=== PATIENT | female | born 1950 | race African-American/Black ===

== ENCOUNTER 2019-05-10 09:31 | Inpatient (IN) ==
[2019-05-10 10:45] LABS: INR 1.02; PROTIME 13.5 Seconds (11.0-16.0)
[2019-05-10 10:58] LABS: BASO# 0.01 X1000 (0.0-0.2); HEMATOCRIT 40.4 % (37.0-47.0); HEMOGLOBIN 13.2 g/dL (12.0-16.0); LYMPH# 4.39 X1000 (1.2-3.4); LYMPH% 21.8 % (20.5-51.1); MCH 29.4 PG (27-31); MCHC 32.7 g/dL (33-37); MONO# 1.81 X1000 (0.11-0.59); MPV 12.7 FL (7.4-10.4); NEUT# 13.77 X1000 (1.4-6.5); NEUT% 68.2 % (42.2-75.2); PLT 199 X1000 (130-400); RBC 4.49 XMIL (4.2-5.4); RDW 13.8 % (11.5-14.5); WBC 20.18 X1000 (4.8-10.8)
[2019-05-10 10:59] LABS: AGAP 13; ALKALINE PHOSPHATASE 94 U/L (32-104); BUN 23 mg/dL (8-22); CALCIUM 9.9 mg/dL (8.8-10.2); CHLORIDE 94 mmol/L (98-107); COSMO 272; ESTIMATED GFR > 60; GLUCOSE 105 mg/dL (70-104); GOT 33 U/L (10-30); GPT 39 U/L (10-36); POTASSIUM 3.3 mmol/L (3.5-5.1); SODIUM 134 mmol/L (136-145); TCO2 27 mmol/L (25-35); TOTAL BILIRUBIN 0.56 mg/dL (0.20-1.00)
[2019-05-10] MEDS ORDERED: LEVAQUIN 750 MG/D5W 750 MG/150 ML IVPB IV ONE (11:07)
[2019-05-10 12:24] LABS: URINE SOURCE CLEAN CATCH
[2019-05-10 12:29] LABS: BILIRUBIN URINE NEGATIVE (NEGATIVE); BLOOD URINE NEGATIVE (NEGATIVE); COLOR YELLOW; GLUCOSE URINE NEGATIVE (NEGATIVE); KETONE URINE NEGATIVE (NEGATIVE); LEUKOCYTES URINE TRACE (NEGATIVE); NITRITE URINE NEGATIVE (NEGATIVE); PROTEIN URINE TRACE mg/dL (NEGATIVE); SP GRAVITY URINE 1.027; TURBIDITY URINE CLEAR (CLEAR); UR EPITHELIAL CELLS <10 /HPF (<10); URINE BACTERIA NEGATIVE /HPF; URINE RBC <10 /HPF (<10); URINE WBC <10 /HPF (<10); UROBILINOGEN URINE NORMAL (NORMAL)
--- NOTE | 2019-05-10 14:30 | Diag Imaging Result Doc PS360 ---
EXAM: CT ABD/PELVIS W/IV CONT ONLY HISTORY: gi bleeding TECHNIQUE: CT abdomen and pelvis with intravenous contrast COMPARISON: 05/10/2017 FINDINGS: There is fatty infiltration of the liver. No calcified gallstones or adjacent inflammation. Normal spleen and adrenal glands. Normal pancreas. There are left renal cysts. No hydronephrosis. Normal aorta. No bowel obstruction. No bowel wall thickening on the current exam. Normal appendix. No abscess. No ascites. The urinary bladder is low lying. The uterus has been removed. No pelvic mass. IMPRESSION: 1.Fatty infiltration of the liver 2.Scattered left renal cysts measuring up to 5.8 cm 3.Hysterectomy with a low lying urinary bladder This exam was performed using automated exposure control, adjustment of mA or kV according to patient size, and/or use of iterative reconstruction technique. Electronically signed by Chapo Eng 05/10/2019 2:27 PM
--- NOTE | 2019-05-10 14:48 | PROVIDER DOCUMENTATION ---
This chart was entered by Augie Miner Scribe, acting as scribe for Raz Hernandez MD. HPI-Abdominal Pain/GI Problem - General Chief Complaint: GI Bleed Stated Complaint: general Time Seen by Provider: 05/10/19 10:03 Source: patient Allergies/Adverse Reactions: Patient Allergies Allergy/AdvReac Type Severity Reaction Status Date / Time allopurinol Allergy Mild RASH Verified 05/10/19 10:18 furosemide [From Lasix] Allergy Mild ITCHING Verified 05/10/19 10:18 Home Medications: Home Medication List Medication Instructions Recorded Confirmed Last Taken Type Timolol 0.5% Oph Solution 1 drop OPH DAILY 05/13/17 05/10/19 05/09/17 08:00 H istory [Timoptic 0.5% Oph Solution] ATORVAstatin [Lipitor] 40 mg PO DAILY 05/10/19 05/10/19 Unknown History Amoxicillin/Potassium Clav 1 ea PO BID 05/10/19 05/10/19 Unknown History [Augmentin 875-125 Tablet] Hydrochlorothiazide 12.5 mg PO DAILY 05/10/19 05/10/19 Unknown History Levothyroxine [Synthroid] 125 microgm PO DAILY 05/10/19 05/10/19 Unknown History Montelukast [Singulair] 10 mg PO DAILY 05/10/19 05/10/19 Unknown History - History of Present Illness-ABD Nature of Presenting Problems: 69 yof presents to the ed with c/o loose dark stool. pt states onset yesterday with loose dark diarrhea." pt states " thought i was having GI bleed." pt brought in stool sample. Quality of Pain: reports: none Severity in ED: reports: mild Onset/Duration: reports: 24 hours ago Timing: reports: still present Activities at Onset: reports: none Exposure to sick contacts?: No Modifying Factors: improves with: nothing Associated Symptoms: reports: diarrhea. denies: back/neck pain, chest pain, constipation, diaphoresis, fever/chills, nausea, rash, shortness of breath, vomiting Last BM: 24 hours ago Dark Stools Present?: reports: other (pt states " dark stool") Rectal Bleeding: reports: none # of Diarrhea Episodes: 8 Rectal Pain: reports: none Emesis Description: reports: none Bruising or Bleeding Gums?: No Similar Symptoms Previously?: No Recently seen or treated by another doctor?: No Review of Systems - Adult - REVIEW OF SYSTEMS - ADULT Constitutional: denies: chills, fever Eyes: reports: no symptoms reported Ears, Nose, Mouth & Throat: reports: no symptoms reported Cardiovascular: reports: no symptoms reported Respiratory: denies: shortness of breath, wheezing Gastrointestinal: reports: see HPI, diarrhea. denies: abdominal pain, constipation, nausea, vomiting Genitourinary: denies: dysuria, discharge, frequency, flank pain, urinary retention, urgency Musculoskeletal: reports: no symptoms reported Integumentary: reports: no symptoms reported Neurological: reports: no symptoms reported Psychiatric: reports: no symptoms reported Endocrine: reports: no symptoms reported Hematologic/Lymphatic: reports: no symptoms reported Allergic/Immunologic: reports: no symptoms reported All Other Systems: Reviewed and Negative Past History - Adult - PAST MEDICAL HISTORY-ADULT Review of Records: reports: Old Records Reviewed, Nursing Assessment Review, Me dications Reviewed, Social history reviewed & non-contributory. Major Childhood Illnesses: reports: denies history Cardiovascular: reports: denies history Respiratory: reports: denies history Gastrointestinal: reports: denies history Obstetrical/Gynecological: reports: denies history Genitourinary: reports: denies history Musculoskeletal: reports: denies history Neurological: reports: denies history Psychiatric: reports: denies history Endocrine/Immune: reports: Diabetes, thyroid disorder, other (Low potassium) Diabetes Type: Type 2 Other Conditions: reports: denies history - PRIOR SURGERIES/PROCEDURES Surgical/Procedure History: reports: hysterectomy - IMMUNIZATION STATUS Childhood Immunizations: See Nurse Assessment Flu Vaccine: See Nurse Assessment - FAMILY HISTORY Family History: reviewed, not pertinent - SOCIAL HISTORY Smoking: denies Substance Use: denies Physical Exam-General - PHYSICAL EXAM-ADULT Initial Vital Signs Reviewed: Yes - CONSTITUTIONAL General Appearance: appears well, alert, mild distress - EYES Eyes: PERRL/EOMI - HEAD, EARS, NOSE, MOUTH & THROAT HENMT: moist mucous membranes - RESPIRATORY Respiratory: chest non-tender, lungs clear, normal breath sounds - CARDIOVASCULAR Cardiovascular: normal peripheral pulses, regular rate, rhythm - CHEST (BREASTS) Chest/Breast: deferred - GASTROINTESTINAL (ABDOMEN) Abdominal Exam: normal bowel sounds, non tender, soft. negative: guarding - GENITOURINARY Female Genitalia/Pelvic Exam: deferred Rectal Exam: deferred Hemoccult Exam: heme positive stool - MUSCULOSKELETAL Extremity: normal inspection - SKIN Integumentary: normal color, normal turgor, warm/dry - NEUROLOGIC Neurologic: grossly normal, no motor/sensory deficits - PSYCHIATRIC Psych/Mental Status: normal mood/affect, normal thought content, normal thought process, oriented x 3 Progress - PLAN OF CARE/RESULTS Progress/Plan/Lab Results: Vital Signs - 8 hr 05/10/19 09:37 Temperature 97.3 F L Pulse Rate 63 Respiratory Rate 19 Blood Pressure 162/96 O2 Sat by Pulse Oximetry 96 05/10/19 09:38 Stool Occult Blood (EMIGDIO) - Final Stool Laboratory Results - last 24 hr 05/10/19 05/10/19 05/10/19 10:25 10:25 10:25 WBC 20.18 H RBC 4.49 Hgb 13.2 Hct 40.4 MCV 90.0 MCH 29.4 MCHC 32.7 L RDW Std Deviation 13.8 Plt Count 199 MPV 12.7 H Immature Gran % (Auto) 1.0 H Neut % (Auto) 68.2 Lymph % (Auto) 21.8 Peach % (Auto) 9.0 Eos % (Auto) 0.0 Baso % (Auto) 0.0 Immature Gran # (Auto) 0.20 H Neut # (Auto) 13.77 H Lymph # (Auto) 4.39 H Peach # (Auto) 1.81 H Eos # (Auto) 0.00 Baso # (Auto) 0.01 PT 13.5 INR 1.02 PTT (Actin FS) 26.0 Sodium 134 L Potassium 3.3 L Chloride 94 L Carbon Dioxide 27 Anion Gap 13 BUN 23 H Creatinine 1.0 H Estimated GFR/1.73 m2 > 60 BUN/Creatinine Ratio 23 Glucose 105 H Calculated Osmolality 272 Calcium 9.9 Total Bilirubin 0.56 AST 33 H ALT 39 H Alkaline Phosphatase 94 Total Protein 8.0 Albumin 4.0 Globulin 4.0 Albumin/Globulin Ratio 1.0 Orders Category Date Time Status CT ABD/PELVIS W/IV CONT ONLY [CT] Stat Exams 05/10/19 11:07 Ordered BLOOD CULTURE [BLDCUL] Stat Lab 05/10/19 11:07 Uncollected CBC WITH ELECTRONIC DIFF [HEME] Stat Lab 05/10/19 10:25 Completed COMPREHENSIVE METABOLIC PANEL [CHEM] Stat Lab 05/10/19 10:25 Completed OCCULT BLOOD SCREENING [STOOL] Stat Lab 05/10/19 09:38 Completed PROTIME WITH INR [COAG] Stat Lab 05/10/19 10:25 Completed PTT [COAG] Stat Lab 05/10/19 10:25 Completed URINALYSIS W/POSS RFLX CULT [URINALYSIS] Stat Lab 05/10/19 11:07 Uncollected Levofloxacin 750 mg/D5w [Levaquin 750 mg/D5w] Med 05/10/19 11:07 Active 750 mg in 150 ml IV NOW Result Diagrams: 05/10/19 10:25 05/10/19 10:25 - CT/MRI 1 CT Study: Abdomen, Pelvis Impression: See EMR Report (EXAM: CT ABD/PELVIS W/IV CONT ONLY HISTORY: gi bleeding TECHNIQUE: CT abdomen and pelvis with intravenous contrast COMPARISON: 05/10/2017 FINDINGS: There is fatty infiltration of the liver. No calcified gallstones or adjacent inflammation. Normal spleen and adrenal glands. Normal pancreas. There are left renal cysts. No hydronephrosis. Normal aorta. No bowel obstruction. No bowel wall thickening on the current exam. Normal appe ndix. No abscess. No ascites. The urinary bladder is low lying. The uterus has been removed. No pelvic mass. IMPRESSION: 1.Fatty infiltration of the liver 2.Scattered left renal cysts measuring up to 5.8 cm 3.Hysterectomy with a low lying urinary bladder This exam was performed using automated exposure control, adjustment of mA or kV according to patient size, and/or use of iterative reconstruction technique. Electronically signed by Chapo Eng 05/10/2019 2:27 PM 05/10/19 1427 Interpreting Physician: Chapo Eng MD Dictated Date/Time: 05/10/19 1424 cc: Raz Hernandez MD; Ector Coon MD) - CONSULTS/PCP/HOSPITALIST Notification #1 *Consult/PCP/Hospitalist*: Dr. Hernandez consult with Moraima for Hospitalist Time Discussed: 14:41 Consult Disposition: Will see in ED, Admit Departure - Departure Date of Disposition Decision: 05/10/19 Time of Disposition Decision: 14:47 DIAGNOSIS: GI bleeding, Leukocytosis Disposition: ADMITTED INPATIENT 09 Certified Medical Emergency: Emergent Condition: Fair Referrals and Follow-Ups: Ector Coon MD [Primary Care Provider] - - Critical Care Note This patient required my direct & personal management of CC.: Yes Attestation - Physician/ EMILY Attestation Patient care was provided by Advanced Practice Provider:: No The physician spent face to face time with patient:: Yes Advanced Practice Provider documentation review:: Supervising physician onsite and consulted in the evaluation and care of this patient. The physician did have a face to face encounter with the patient. This chart was documented by the indicated scribe, (Augie Miner Scribe) and accurately reflects the services I performed and decisions made by me, Raz Hernandez MD, as attested by the provider's signature.
[2019-05-10] MEDS ORDERED: ZOFRAN IV PRN (14:53)
[2019-05-10] MEDS ORDERED: TYLENOL PO PRN (14:53)
[2019-05-10] MEDS ORDERED: NORCO-7.5 PO PRN (14:53)
[2019-05-10] MEDS ORDERED: APRESOLINE IV PRN (15:13)
[2019-05-10 16:12] LABS: HEMATOCRIT 38.7 % (37.0-47.0); HEMOGLOBIN 12.7 g/dL (12.0-16.0)
[2019-05-10] MEDS: NS 1,000 ML IV SCH (18:00)
[2019-05-10] MEDS: PROTONIX IV SCH (18:00)
[2019-05-10] MEDS: FLAGYL 500 MG/NS 500 MG/100 ML IVPB IV SCH ×2 (18:00→20:01)
[2019-05-10] MEDS: LIPITOR PO SCH (20:01)
[2019-05-10] MEDS: CARAFATE LIQUID PO SCH (20:01)
[2019-05-10 23:08] LABS: HEMATOCRIT 38.8 % (37.0-47.0); HEMOGLOBIN 12.4 g/dL (12.0-16.0)
--- NOTE | 2019-05-11 01:46 | HISTORY AND PHYSICAL ---
PRIMARY CARE PROVIDER: Ector Coon. CHIEF COMPLAINT: Black stools. HISTORY OF PRESENT ILLNESS: Ms Taryn Chen is a 69-year-old female with a medical history of colitis and polypectomy with GI bleed in 2017. At that time was seen by Dr. Zaman and Dr. Monzon. Is now here with complaints of 1 week black, tarry stools. Apparently, she had been having some sinus infection type symptoms. Was seen by a physician at [facility] 1 week ago. Was given Augmentin and a prednisone taper, was also given a steroid shot. She had noticed that day is when she started having the black stools. Black, tarry stools were around 8 bowel movements per day. They started becoming more maroon on and she just continued to have more. There was no nausea. No abdominal pain except for when palpated she did have left lower quadrant pain and there were no other symptoms. Her hemoglobin and hematocrit are stable at 13 and 40. Her white count, however, is elevated at 20,000 but this could be reaction to steroids. The stool sample was positive for blood. Abdominal/pelvic CT performed did not show colitis and really did not show anything acute. We will go ahead and do Protonix, and Levaquin and Flagyl, Carafate, and she is requesting for GI to see her so we will do a GI consult with Dr. Monzon who has actually seen her in the past. She stable for medical transfer to the floor. She is a little bit hypertensive on her diastolics. They are running just over 100. PAST MEDICAL HISTORY: 1. Diabetes mellitus type 2, which she states resolved and she claims she was never diagnosed with it. She was given metformin at one time due to medications that she was on according to her. 2. Hypertension. 3. Hyperlipidemia. 4. Hypothyroidism. 5. Gouty arthritis. 6. History of colon polyps with polypectomy. 7. History of colitis. SURGICAL HISTORY: 1. Partial thyroidectomy due to goiter. 2. Partial hysterectomy. 3. Left foot bunionectomy and hammertoe repair. 4. Polypectomy. 5. In 2017 had EGD and colonoscopy. SOCIAL HISTORY: Denies tobacco, alcohol or illicit drug use. She is . She retired from 10 years ago. FAMILY HISTORY: Mother had diabetes. Father had prostate cancer and diabetes. ALLERGIES: Lasix and allopurinol. HOME MEDICATIONS: 1. She was given Augmentin and prednisone on Sunday. 2. Hydrochlorothiazide 12.5 mg p.o. daily. 3. Atorvastatin 40 mg p.o. daily. 4. Singulair 10 mg p.o. daily. 5. Synthroid 125 mcg p.o. daily. 6. Timolol 1 drop in eyes daily. REVIEW OF SYSTEMS: Fourteen point review of systems are complete and all were negative except for those mentioned in above HPI. PHYSICAL EXAMINATION: VITAL SIGNS: Temperature 97.8 degrees, heart rate 61, respiratory rate 18, blood pressure 159/99, O2 saturation 99%. GENERAL: Ms. Taryn Chen is a 69-year-old female. She is in no acute distress. She is able answer questions appropriately. HEENT: Atraumatic, normocephalic. Pupils equal, round, reactive to light. Extraocular movements intact. Mucous membranes are moist. NECK: Trachea midline. CARDIOVASCULAR: S1, S2. Regular rate and rhythm. No rubs, gallops, murmurs. No lower extremity edema. +2 dorsalis and radial pulses. Negative JVD or carotid bruits. PULMONARY: Clear to auscultate bilateral breath sounds. No accessory muscle use or work of breathing noted. GASTROINTESTINAL: Soft, tender in the left lower quadrant with palpation. Positive bowel sounds x4. EXTREMITIES: Moves all extremities equally. Full range of motion. NEUROLOGIC: A and O x3. Follows commands. Sensory is intact. SKIN: Warm, dry, intact. LABORATORY DATA: White blood cells 20,000, hemoglobin 13, hematocrit 40, platelet count 199,000. INR is 1.02, PTT is 26. Sodium 134, potassium 3.3, BUN 23, creatinine is 1.0, glucose 105, calcium 9.9, bilirubin 0.56, AST 33, ALT 39. CRP 0.71, albumin 4.0, lactate 1.1. Urinalysis, trace protein, trace leukocytes. IMAGING: Abdominal/pelvic CT: 1. Fatty infiltration of the liver. 2. Scattered left renal cysts measuring up to 5.8 cm. 3. Hysterectomy with a low-lying urinary bladder. ASSESSMENT AND PLAN: 1. Possible acute gastritis versus upper GI bleed. Stools are black, tarry to maroon. Denies any GI symptoms though upon examination there was some mild tenderness in the left lower quadrant and the CT was negative. We will go ahead and start her on some Protonix and Carafate. She denies taking any medications that would irritate the stomach lining. She has not been under any stress that she can think of so Dr. Monzon has been consulted. She is actually requesting for him to see her. 2. Leukocytosis. Has been on steroids for a week now. This could be secondary to steroids, but she does also have a history of colitis. We will do stool samples as she has had about 8 bowel movements a day. We will rule out C difficile and we will put her on Levaquin and Flagyl until results are back. We will hold the steroids for now. 3. Sinus infection a week ago. Those symptoms have resolved. She has been on Augmentin and prednisone taper for a week. 4. Hypertension. Hydrochlorothiazide has been started. Her diastolic is over 100. We will add some p.r.n. hydralazine. 5. Hyperlipidemia. Statin resumed. 6. Gouty arthritis. 7. Hypothyroidism. Continue Synthroid. 8. Deep venous thrombosis prophylaxis. SCDs. Dictated by ALEXIS Samson for Domenic Bowser MD Addendum: Patient seen and examined by myself. Agree with ALEXIS note. It reflects my assessment and plan. Patient is being admitted to hospital for GI bleeding. Will consult GI, will start antibiotics for acute colitis. Will monitor patient closely. cc: ALEXIS Samson MD [facility]
[2019-05-11] MEDS: PROTONIX IV SCH ×2 (03:22→16:07)
[2019-05-11] MEDS: FLAGYL 500 MG/NS 500 MG/100 ML IVPB IV SCH ×4 (03:22→21:29)
[2019-05-11] MEDS: CARAFATE LIQUID PO SCH ×4 (03:22→21:29)
[2019-05-11] MEDS: NS 1,000 ML IV SCH ×2 (03:30→10:26)
[2019-05-11 05:29] LABS: BASO# 0.01 X1000 (0.0-0.2); BASO% 0.1 % (0.0-0.8); EOS# 0.06 X1000 (0.0-0.7); EOS% 0.5 % (0.0-10.0); HEMATOCRIT 38.9 % (37.0-47.0); HEMOGLOBIN 12.6 g/dL (12.0-16.0); IMM GRAN# 0.06 X1000 (0.0-0.04); IMM GRAN% 0.5 % (0.0-0.5); LYMPH# 4.51 X1000 (1.2-3.4); LYMPH% 40.1 % (20.5-51.1); MCH 29.7 PG (27-31); MCHC 32.4 g/dL (33-37); MCV 91.7 FL (81-99); MONO# 0.93 X1000 (0.11-0.59); MONO% 8.3 % (1.7-9.3); MPV 12.4 FL (7.4-10.4); NEUT# 5.69 X1000 (1.4-6.5); NEUT% 50.5 % (42.2-75.2); PLT 148 X1000 (130-400); RBC 4.24 XMIL (4.2-5.4); RDW 14.1 % (11.5-14.5); WBC 11.26 X1000 (4.8-10.8)
[2019-05-11 05:51] LABS: AGAP 14; ALB/GLOB RATIO 0.9; ALBUMIN 3.3 g/dL (3.5-5.0); ALKALINE PHOSPHATASE 84 U/L (32-104); BUN 19 mg/dL (8-22); CHLORIDE 98 mmol/L (98-107); COSMO 280; ESTIMATED GFR > 60; GLUCOSE 103 mg/dL (70-104); GOT 52 U/L (10-30); GPT 47 U/L (10-36); MAGNESIUM 2.1 mg/dL (1.5-2.7); POTASSIUM 3.2 mmol/L (3.5-5.1); SODIUM 139 mmol/L (136-145); TCO2 27 mmol/L (25-35); TOTAL BILIRUBIN 0.55 mg/dL (0.20-1.00); TOTAL PROTEIN 6.8 g/dL (6.3-8.3)
[2019-05-11] MEDS: SYNTHROID PO SCH (06:28)
[2019-05-11] MEDS: HYDROCHLOROTHIAZIDE PO SCH (08:11)
[2019-05-11] MEDS: SINGULAIR PO SCH (08:11)
[2019-05-11] MEDS: TIMOPTIC 0.5% OPH SOLUTION OPH SCH (08:17)
[2019-05-11] MEDS ORDERED: KLOR-CON PO ONE (11:23)
[2019-05-11 11:54] LABS: HEMATOCRIT 38.8 % (37.0-47.0); HEMOGLOBIN 12.5 g/dL (12.0-16.0)
--- NOTE | 2019-05-11 13:06 | PROGRESS NOTE ---
DATE: 05/11/2019 SUBJECTIVE: The patient reports feeling fine. No abdominal pain. No fever or chills. OBJECTIVE: Vital Signs: Temperature 97.9 degrees, heart rate 61, respiratory 16, blood pressure 149/89, O2 saturation 100% on room air. General: This is a 69-year-old female lying in bed, in no acute distress. Cardiovascular: S1, S2 heard. No murmurs, gallops, or rubs. Regular rate and rhythm. Respiratory: Clear bilaterally to auscultation. No work of breathing or using accessory muscles. Abdomen: Soft, nontender to palpation. Bowel sounds present. No organomegaly. Extremities: No clubbing, cyanosis, or edema. Peripheral pulses present in both legs. Neurological: Patient is alert oriented x3. Moves 4 extremities. LABORATORY DATA: White cell count 12.5 with normal white cell count 11.26. Potassium 3.2. Creatinine 1.0. ASSESSMENT AND PLAN: 1. Possible upper gastrointestinal bleeding. No more episodes of black tarry stools. At this point, the patient is feeling better. The leukocytosis that this patient had is most likely related to colitis, but with antibiotic that she is on, white cell count is almost back to normal. So at this point, we will continue with current management. We will see what GI has to say. We will continue to monitor. 2. Hypertension. Blood pressure is under control. We will continue with the same management. 3. Hyperlipidemia. We will continue with statins. 4. Gouty arthritis. Not in any pain at this point, we will continue to monitor. 5. Hypothyroidism. Will continue home doses of Synthroid. 6. Disposition. Following lead from GI. cc: Domenic Bowser MD
[2019-05-11] MEDS: LEVAQUIN 750 MG/D5W 750 MG/150 ML IVPB IV SCH (13:43)
[2019-05-11] MEDS ORDERED: GOLYTELY PO ONE ×2 (14:00)
[2019-05-11] MEDS: SODIUM CHLORIDE 0.9% INJ SCH (16:07)
[2019-05-11 16:44] LABS: HEMATOCRIT 38.5 % (37.0-47.0); HEMOGLOBIN 12.4 g/dL (12.0-16.0)
--- NOTE | 2019-05-11 19:23 | GASTROENTEROLOGY CONSULTATION ---
DATE: 05/10/2019 REASON FOR CONSULT: GI bleed. HISTORY OF PRESENT ILLNESS: Ms Taryn Chen is a 69-year-old female with a history of colitis, hypertension, hyperlipidemia, hypothyroidism, gout, arthritis, diabetes type 2 who presented to the hospital with complaints of noticing dark tarry stools which has been going on for the last 1 week onwards. The patient mentioned that she had some sinus infection and she had gone to [facility] a week ago where they had given her Augmentin and prednisone. After taking the Augmentin, the patient mentioned that she started seeing her stools were black and tarry and she was having diarrhea almost 7 to 8 bowel movements daily. The patient has denied any nausea, vomiting, or abdominal pain, but she does mention that her abdomen feels like it is a bloated. Patient was in the hospital in May 2017 with similar problems. She had rectal bleeding. A colonoscopy was done by Dr. Monzon on 05/11/2017 and the findings were diffuse colitis, more intense in the right colon, likely infectious. The patient's abdomen and pelvis CT has shown she has fatty infiltration of the liver, scattered left renal cyst measuring up to 5.8 cm, hysterectomy with the low-lying urinary bladder. Her C difficile toxin was negative. Clostridium difficile antigen was negative. The patient's urine culture has shown no growth. Her occult blood was positive and stool cultures for WBC, few were seen. PAST MEDICAL HISTORY: Diabetes type 2, hypertension, hyperlipidemia, hypothyroidism, gout, arthritis, history of colon polyp, history of colitis. PAST SURGICAL HISTORY: Partial thyroidectomy, partial hysterectomy, left foot bunionectomy and hammertoe repair, polypectomy. SOCIAL HISTORY: The patient is a . She has 3 kids. She has denied any alcohol, tobacco, or illicit drug use. ALLERGIES: The patient is allergic to Lasix and allopurinol. FAMILY HISTORY: Mother had diabetes. Father had prostate cancer and diabetes and sister had colon cancer. HOME MEDICATIONS ARE: Timolol 0.5% ophthalmic solution 1 drop daily, hydrochlorothiazide 12.5 mg daily, levothyroxine 125 mcg daily, Singulair 10 mg daily, Augmentin 875/125 tablets 1 tablet p.o. twice a day, atorvastatin 40 mg daily. REVIEW OF SYSTEMS: As per HPI. Otherwise, 12 point review of system is negative. PHYSICAL EXAMINATION: Vital Signs: Temperature 97.3, pulse 63, respirations 19, blood pressure 162/96, oxygen saturation 96% on room air. General: She is alert, oriented x3, in no acute distress. Answering questions appropriately. HEENT: Pale conjunctivae. No icterus. PERRL. Neck: Supple. Lungs: Clear to auscultation in the anterior tirado. Cardiovascular: Regular rate and rhythm. Abdomen: Mildly distended, mildly tender. Active bowel sounds heard in all 4 quadrants. Extremities: No clubbing, no cyanosis, no edema. Pedal pulses 2+ present bilaterally. Neurological: Alert and oriented x3. Nonfocal. Cranial nerves 2-12 grossly intact. LABORATORY DATA: WBC is 20.18, RBC 4.49, hemoglobin 12.4, hematocrit 38.8, platelet count 199,000. Sodium 134, potassium 3.3, chloride 94, carbon dioxide is 27, anion gap 13, BUN 23, creatinine 1.0, glucose 105, calcium 9.9, total bilirubin 0.56, AST 33, ALT 39, alkaline phos 94, albumin 4.0. Urinalysis showed trace of protein and trace of leukocyte. IMAGING: Ultrasound of the abdomen showed fatty infiltrates of the liver. Abdomen and pelvis CT had shown fatty infiltrates of the liver, scattered left renal cyst measuring up to 5.8 cm and hysterectomy and low-lying urinary bladder. IMPRESSION AND PLAN: GI bleed Diarrhea History of colitis Leukocytosis Hypertension Hypothyroidism Gout Arthritis PLAN: Ms. Chen is a 69 year old female with the history of colitis, GI is consulted for her GI bleed. The patient is receiving Flagyl 500 mg for her diarrhea. She is on IV fluids normal saline at 75 mL. The patient is on a gastrointestinal prophylaxis, Protonix 40 mg IV twice a day. She is also receiving Carafate liquid 1 g. The patient is also on antibiotic Levaquin. The plan is to do a colonoscopy on Sunday. We will continue to monitor the patient and follow the plan of care per primary care physician. This plan was discussed with Dr. Monzon. Please call us for any further questions or concerns. Dictated by ALEXIS Nash for Marsha Monzon MD cc: Marsha Monzon MD [facility]
[2019-05-11] MEDS: LIPITOR PO SCH (21:29)
--- NOTE | 2019-05-11 21:34 | GASTROENTEROLOGY PROGRESS NOTE ---
DATE: 05/11/2019 SUBJECTIVE: Ms. Chen is a 69-year-old female. She was sitting in bed. She has denied any abdominal pain, nausea, vomiting, but she was a little nervous and wanted to know what exactly is going on as far as her stomach is concerned. OBJECTIVE: Vital Signs: Temperature 97.7 degrees, pulse is 54, respirations 16, blood pressure 130/84, oxygen saturation 100% on room air. The patient's weight is 192 pounds. BMI is 37.0 kg/m2. General: She is alert, oriented x3, and in no acute distress. HEENT: Pale conjunctivae. No icterus. PERRL. Neck: Supple. Lungs: Clear to auscultation in anterior tirado. Cardiovascular: Patient is bradycardic. Abdomen: Soft, mildly distended. Active bowel sounds heard in all 4 quadrants. Extremities: No clubbing, no cyanosis, no edema. Pedal pulses 2+ present bilaterally. Neurological: Alert, oriented x3. LABS: WBC is 11.26, RBC 4.24, hemoglobin 12.4, hematocrit 38.5, platelet count is 148,000. Sodium 139, potassium 3.2, chloride 98, carbon dioxide is 27, anion gap 14, BUN 19, creatinine 1.0, glucose 103, calcium 9.0, magnesium 2.1, total bilirubin 0.55, AST 52, ALT 47, alkaline phos 84, albumin 3.3. Urinalysis yesterday showed trace of protein and trace of leukocytes. IMPRESSION: 1. Gastrointestinal bleed. 2. Diarrhea. 3. History of colitis. 4. Leukocytosis. 5. Hypertension. 6. Hypothyroidism. 7. Gout. 8. Arthritis. PLAN: Ms. Chen is a 69-year-old female with a history of colitis. GI is following her for a gastrointestinal bleed. We plan to do a colonoscopy to find out the cause of her GI bleed and her diarrhea. The patient is currently receiving antibiotics, Flagyl for diarrhea. She is on IV fluids normal saline at 75. She is receiving GI prophylaxis protonix 40 mg twice a day. For hypothyroidism, she is on Synthroid 125 mcg daily. We have discussed the risks, benefits, and alternatives of the procedure with the patient. The patient acknowledges understanding of the plan of care. Further plan of care will be based on the colonoscopy finding. This plan was discussed with Dr. Monzon. We will continue to monitor the patient and follow the plan of care per PCP. This plan was discussed with Dr. Monzon. Please call us for any further questions or concerns. Dictated by ALEXIS Nash for Marsha Monzon MD cc: Marsha Monzon MD [facility]
[2019-05-11 23:52] LABS: HEMATOCRIT 40.4 % (37.0-47.0); HEMOGLOBIN 13.3 g/dL (12.0-16.0)
[2019-05-12] MEDS: CARAFATE LIQUID PO SCH ×2 (01:43→11:14)
[2019-05-12] MEDS: NS 1,000 ML IV SCH (02:15)
[2019-05-12 06:15] LABS: BASO# 0.02 X1000 (0.0-0.2); BASO% 0.2 % (0.0-0.8); EOS# 0.11 X1000 (0.0-0.7); EOS% 1.2 % (0.0-10.0); HEMATOCRIT 41.7 % (37.0-47.0); HEMOGLOBIN 13.6 g/dL (12.0-16.0); IMM GRAN# 0.06 X1000 (0.0-0.04); IMM GRAN% 0.7 % (0.0-0.5); LYMPH% 28.3 % (20.5-51.1); MCH 29.8 PG (27-31); MCHC 32.6 g/dL (33-37); MCV 91.4 FL (81-99); MONO# 0.93 X1000 (0.11-0.59); MONO% 10.1 % (1.7-9.3); MPV 12.2 FL (7.4-10.4); NEUT# 5.46 X1000 (1.4-6.5); NEUT% 59.5 % (42.2-75.2); PLT 145 X1000 (130-400); RBC 4.56 XMIL (4.2-5.4); RDW 14.1 % (11.5-14.5); WBC 9.18 X1000 (4.8-10.8)
[2019-05-12 06:58] LABS: AGAP 9; ALB/GLOB RATIO 1.2; ALBUMIN 3.7 g/dL (3.5-5.0); ALKALINE PHOSPHATASE 92 U/L (32-104); BUN 11 mg/dL (8-22); CALCIUM 9.4 mg/dL (8.8-10.2); CHLORIDE 101 mmol/L (98-107); COSMO 281; ESTIMATED GFR > 60; GLUCOSE 102 mg/dL (70-104); GOT 49 U/L (10-30); GPT 46 U/L (10-36); MAGNESIUM 2.1 mg/dL (1.5-2.7); POTASSIUM 3.5 mmol/L (3.5-5.1); SODIUM 141 mmol/L (136-145); TCO2 31 mmol/L (25-35); TOTAL BILIRUBIN 0.64 mg/dL (0.20-1.00); TOTAL PROTEIN 6.9 g/dL (6.3-8.3)
[2019-05-12] MEDS: SYNTHROID PO SCH (08:13)
[2019-05-12] MEDS: FLAGYL 500 MG/NS 500 MG/100 ML IVPB IV SCH ×2 (08:13→11:13)
[2019-05-12] MEDS ORDERED: XYLOCAINE-MPF 2% ONE (10:26)
[2019-05-12] MEDS ORDERED: DIPRIVAN 1% ONE (10:27)
--- NOTE | 2019-05-12 11:00 | ENDOSCOPY OPERATIVE NOTE ---
[facility] ENDOSCOPY OPERATIVE NOTE , COLONOSCOPY PROCEDURE REPORT EXAM DATE: 05/12/2019 PATIENT NAME: Taryn Chen MR #: [id number] BIRTHDATE: 1950 ENDOSCOPIST: Wojciech Zaman MD STATUS: inpatient CYTOTECHNOLOGIST/HISTOTECHNOLOGIST: INDICATIONS: The patient is a 69 yr old female here for a colonoscopy due to Rectal Bleeding. PROCEDURE PERFORMED: Colonoscopy with biopsy MEDICATIONS: Per Anesthesia PREP TYPE: GoLytely
[2019-05-12] MEDS: HYDROCHLOROTHIAZIDE PO SCH (11:13)
[2019-05-12] MEDS: SINGULAIR PO SCH (11:13)
[2019-05-12] MEDS: SODIUM CHLORIDE 0.9% INJ SCH (11:14)
[2019-05-12] MEDS: PROTONIX IV SCH (11:14)
[2019-05-12] MEDS: TIMOPTIC 0.5% OPH SOLUTION OPH SCH (13:03)
[2019-05-12] MEDS: LEVAQUIN 750 MG/D5W 750 MG/150 ML IVPB IV SCH (13:40)
[2019-05-12 15:47] VITALS: BP 131/75
[2019-05-12] MEDS ORDERED: ANUSOL-HC CREAM PR SCH (21:00)
[2019-05-13] MEDS ORDERED: MIRALAX PO SCH (09:00)
--- NOTE | 2019-05-13 14:50 | DISCHARGE SUMMARY ---
ADMISSION DATE: 05/10/2019 DISCHARGE DATE: 05/12/2019 DISCHARGE DIAGNOSES: 1. Gastrointestinal bleeding secondary to hemorrhoids. 2. Hypertension. 3. Hyperlipidemia. 4. Gouty arthritis. 5. Hypothyroidism. PROCEDURES: 1. Abdomen and pelvis CT showed fatty infiltration of the liver with scattered left renal cysts and hysterectomy with a low lying urinary bladder. 2. Colonoscopy showed hemorrhoids, internal grade 2, likely source of the GI bleeding, with the scattered mild diverticulosis in the left colon, and transverse colon polyps were resected, and one small descending colon polyp was resected as well. HOSPITAL COURSE: This is a 69-year-old female with past medical history of colitis and polypectomy, who presented to the department complaining of black, tarry stools. Admitted for possible GI bleeding. Initial workup did not reveal any important drop in hemoglobin. Actually, no need for any transfusion. The patient underwent colonoscopy with results as above. The patient is going to be released in stable condition. The reason for bleeding was hemorrhoids. DISCHARGE PHYSICAL EXAMINATION: Vital Signs: Temperature 98.2 degrees, heart rate 57, respiratory rate 16, blood pressure 157/84, O2 saturation 100% on room air. General: This is a 69-year-old female, lying in bed in no acute distress. Cardiovascular: S1, S2 heard. No murmurs, gallops, or rubs. Regular rate and rhythm. Respiratory: Clear bilaterally to auscultation. No work of breathing or using accessory muscles. Abdomen: Soft. Nontender to palpation. Bowel sounds present. No organomegaly. Extremities: No clubbing, cyanosis, or edema. Peripheral pulses present in both legs. Neurological: The patient is alert and oriented x3. Moves all 4 extremities. DISCHARGE DISPOSITION: Home to self-care. FOLLOWUP: Follow up with Dr. Zaman from GI in 2 weeks. LIST OF MEDICATIONS: 1. Anusol 1 application twice daily for 28 days. 2. MiraLAX 1 pack p.o. b.i.d. p.r.n. constipation. 3. Timolol as scheduled. 4. Hydrochlorothiazide 12.5 mg 1 tablet p.o. daily. 5. Levothyroxine 125 mg 1 tablet p.o. daily. 6. Singulair 10 mg 1 tablet p.o. daily. 7. Amoxicillin clavulanic acid scheduled. 8. Atorvastatin 40 mg 1 tablet p.o. daily. TIME SPENT: Time discharging this patient was 32 minutes. cc: Domenic Bowser MD
== END 2019-05-12 15:47 | disposition home or self-care (01) | DRG 395 ==
LOC: ED 09:31 → 3N 15:15
PROVIDERS: ATTEND Internal Medicine

== ENCOUNTER 2019-05-12 17:18 | Inpatient (IN) ==
[2019-05-12] MEDS ORDERED: NS 1,000 ML IV ONE (17:59)
[2019-05-12 18:05] LABS: BASO# 0.01 X1000 (0.0-0.2); BASO% 0.1 % (0.0-0.8); EOS# 0.12 X1000 (0.0-0.7); EOS% 0.8 % (0.0-10.0); HEMATOCRIT 42.9 % (37.0-47.0); HEMOGLOBIN 13.9 g/dL (12.0-16.0); IMM GRAN# 0.11 X1000 (0.0-0.04); IMM GRAN% 0.8 % (0.0-0.5); LYMPH# 4.07 X1000 (1.2-3.4); LYMPH% 28.4 % (20.5-51.1); MCH 29.7 PG (27-31); MCHC 32.4 g/dL (33-37); MCV 91.7 FL (81-99); MONO% 9.8 % (1.7-9.3); NEUT# 8.64 X1000 (1.4-6.5); NEUT% 60.1 % (42.2-75.2); PLT 109 X1000 (130-400); RBC 4.68 XMIL (4.2-5.4); RDW 14.3 % (11.5-14.5); WBC 14.35 X1000 (4.8-10.8)
--- NOTE | 2019-05-12 18:07 | Diag Imaging Result Doc PS360 ---
EXAM: CT HEAD W/O CONTRAST 05/12/2019 HISTORY: Head injury TECHNIQUE: This exam was performed using automated exposure control, adjustment of mA or kV according to patient size, and/or use of iterative reconstruction technique. COMMENT: There is no evidence of bleed mass effect or abnormal extra-axial fluid collection. The visualized paranasal sinuses are clear. The calvarium is intact. IMPRESSION: No evidence of acute intracranial disease. Electronically signed by Tez Caicedo 05/12/2019 6:05 PM
[2019-05-12 18:12] LABS: INR 1.08; PROTIME 14.1 Seconds (11.0-16.0); PTT 24.4 Seconds (22.3-41.8)
--- NOTE | 2019-05-12 18:15 | Diag Imaging Result Doc PS360 ---
EXAM: CHEST-PORTABLE 05/12/2019 HISTORY: Syncope TECHNIQUE: AP upright chest at 1810 COMMENT: There is no evidence of acute cardiac or pulmonary disease. There are no previous studies. IMPRESSION: No acute disease. Electronically signed by Tez Caicedo 05/12/2019 6:12 PM
[2019-05-12 18:27] LABS: ALLEN TEST YES; BE 2.6 mmoll (-3.0-3.0); BLOOD TYPE ARTERIAL; HCO3-(ACT) 26.9 mmoll (20.0-26.0); O2(CT) 18.3 mL/dL (15.0-23.0); O2HB 94.2 % (95.0-99.0); PCO2(98.6) 41 mmHg (35-45); PO2(98.6) 76 mmHg (60-100); SAMPLE BLOOD; SAO2 97.3 % (95.0-100.0); THB 13.8 g/dL (11.5-17.4); pH(98.6) 7.43 (7.35-7.45)
[2019-05-12 18:28] LABS: MODALITY ROOM AIR
[2019-05-12 18:30] LABS: ALB/GLOB RATIO 1.3; ALBUMIN 3.9 g/dL (3.5-5.0); CALCIUM 9.3 mg/dL (8.8-10.2); CREATININE 1.6 mg/dL (0.5-0.9); POTASSIUM 3.3 mmol/L (3.5-5.1); TOTAL BILIRUBIN 0.65 mg/dL (0.20-1.00); TOTAL PROTEIN 6.8 g/dL (6.3-8.3)
--- NOTE | 2019-05-12 19:19 | ED EKG INTERP ---
This chart was entered by Aby Germain Scribe, acting as scribe for Israel Johnson MD. EKG Interpretation - EKG Time of EKG reading by physician:: 18:24 EKG Read and Signed by:: Israel Johnson EKG Interpretation (*Must complete 3 of following elements*): Normal Rate: 60 Rhythm: NSR [place]: normal QRS: normal MT Interval: normal ST Wave: normal Comments: LAE. NO STEMI Attestation - Physician/ EMILY Attestation Patient care was provided by Advanced Practice Provider:: No The physician spent face to face time with patient:: Yes Advanced Practice Provider documentation review:: Supervising physician onsite and consulted in the evaluation and care of this patient. The physician did have a face to face encounter with the patient. This chart was documented by the indicated scribe, (Aby Germain Scribe) and accurately reflects the services I performed and decisions made by Elizabeth nielsen Joshua T., MD, as attested by the provider's signature.
--- NOTE | 2019-05-12 19:19 | PROVIDER DOCUMENTATION ---
This chart was entered by Iris Perez Scribe, acting as scribe for Israel Johnson MD. HPI-Syncope/Dizziness - General Stated Complaint: SYNCOPE Time Seen by Provider: 05/12/19 17:40 Source: patient Allergies/Adverse Reactions: Patient Allergies Allergy/AdvReac Type Severity Reaction Status Date / Time allopurinol Allergy Mild RASH Verified 05/12/19 17:52 furosemide [From Lasix] Allergy Mild ITCHING Verified 05/12/19 17:52 Home Medications: Home Medication List Medication Instructions Recorded Confirmed Last Taken Type Timolol 0.5% Oph Solution 1 drop OPH DAILY 05/13/17 05/12/19 05/12/19 History [Timoptic 0.5% Oph Solution] ATORVAstatin [Lipitor] 40 mg PO DAILY 05/10/19 05/12/19 05/12/19 History Hydrochlorothiazide 12.5 mg PO DAILY 05/10/19 05/12/19 05/12/19 History Levothyroxine [Synthroid] 125 microgm PO DAILY 05/10/19 05/12/19 05/12/19 Hi story Montelukast [Singulair] 10 mg PO DAILY 05/10/19 05/12/19 05/12/19 History Hydrocortisone 2.5% Cream 1 gm VT BID 28 Days #4 tube 05/12/19 05/12/19 Unknown Rx [Anusol-Hc Cream] Polyethylene Glycol 3350 [Miralax] 17 gm PO BID PRN PRN #60 powd.pack 05/12/19 05/12/19 05/12/19 Rx Polyethylene Glycol 3350 [Miralax] 17 gm PO DAILY powder, packet 05/12/19 05/12/19 05/12/19 Rx - History of Present Illness-Syncope/Dizzy Nature of Presenting Problem: Patient is a 69 year old female who presents to the ED via EMS after having a syncopal episode. Patient states she was discharged from the hospital 1 hour ago after being admitted and having a colonoscopy. Reports having dizziness, difficulty walking and shortness of breath prior to syncopal episode. Denies chest pain, abdominal pain and headache. The patient does not believe she hit her head. Prior Episodes: reports: single episode today Onset/Duration: reports: just prior to arrival Timing: reports: improving Position/Activity at time of episode: reports: standing Symptoms prior to episode: reports: other (dizziness, shortness of breath and difficulty walking) Context: reports: lost consciousness Loss of Consciousness: unsure Location of injury. (If syncope resulted in an injury.): reports: none Review of Systems - Adult - REVIEW OF SYSTEMS - ADULT ROS:: limited per condition Constitutional: reports: no symptoms reported Eyes: reports: other (seeing stars). denies: eye pain Ears, Nose, Mouth & Throat: reports: no symptoms reported. denies: throat pain Cardiovascular: reports: no symptoms reported. denies: chest pain Respiratory: reports: see HPI, shortness of breath Gastrointestinal: reports: see HPI, nausea Genitourinary: reports: no symptoms reported. denies: flank pain Musculoskeletal: reports: no symptoms reported. denies: neck pain Integumentary: reports: no symptoms reported Neurological: reports: see HPI, dizziness/vertigo (dizziness), syncope, other (difficulty walking) Psychiatric: reports: no symptoms reported Endocrine: reports: no symptoms reported Hematologic/Lymphatic: reports: no symptoms reported Allergic/Immunologic: reports: no symptoms reported All Other Systems: Reviewed and Negative Past History - Adult - PAST MEDICAL HISTORY-ADULT Review of Records: reports: Old Records Reviewed, Nursing Assessment Review Major Childhood Illnesses: reports: denies history Cardiovascular: reports: HTN, hyperlipidemia Respiratory: reports: denies history Gastrointestinal: reports: denies history Obstetrical/Gynecological: reports: denies history Genitourinary: reports: denies history Musculoskeletal: reports: denies history Neurological: reports: denies history Endocrine/Immune: reports: Diabetes, thyroid disorder, other (Low potassium) Other Conditions: reports: denies history - PRIOR SURGERIES/PROCEDURES Surgical/Procedure History: reports: colonoscopy, hysterectomy - IMMUNIZATION STATUS Childhood Immunizations: See Nurse Assessment Flu Vaccine: See Nurse Assessment - FAMILY HISTORY Family History: reviewed, not pertinent - SOCIAL HISTORY Smoking: denies Substance Use: denies Alcohol Use Frequency: never Physical Exam-General - PHYSICAL EXAM-ADULT Initial Vital Signs Reviewed: Yes - CONSTITUTIONAL General Appearance: no apparent distress, slow to respond - EYES Eyes: PERRL/EOMI - HEAD, EARS, NOSE, MOUTH & THROAT HENMT: moist mucous membranes, pharynx normal - RESPIRATORY Respiratory: lungs clear, normal breath sounds - CARDIOVASCULAR Cardiovascular: regular rate, rhythm, no edema - GASTROINTESTINAL (ABDOMEN) Abdominal Exam: non tender, soft. negative: guarding, rebound - MUSCULOSKELETAL Extremity: normal inspection, other (strength 5/5 in the UE and LE). negative: pedal edema - SKIN Integumentary: normal color, warm/dry - NEUROLOGIC Neurologic: head of store operations II-XII nml as tested, no motor/sensory deficits (5/5 strength to upper and lower extremities bilaterally.). negative: motor weakness, sensory deficit - PSYCHIATRIC Psych/Mental Status: normal mood/affect, oriented x 3 Progress - PLAN OF CARE/RESULTS Progress/Plan/Lab Results: Vital Signs - 8 hr 05/12/19 17:44 05/12/19 18:18 05/12/19 18:39 Temperature 98 F Pulse Rate 58 L 61 Pulse Rate [Sitting] 66 Pulse Rate [Standing] 71 Pulse Rate [Supine] 68 Respiratory Rate 16 18 Blood Pressure 84/58 114/68 Blood Pressure [Sitting] 123/70 Blood Pressure [Standing] 127/78 Blood Pressure [Supine] 115/68 O2 Sat by Pulse Oximetry 94 L 95 Laboratory Results - last 24 hr 05/12/19 05/12/19 05/12/19 17:40 17:40 17:40 WBC 14.35 H RBC 4.68 Hgb 13.9 Hct 42.9 MCV 91.7 MCH 29.7 MCHC 32.4 L RDW Std Deviation 14.3 Plt Count 109 L MPV 12.0 H Immature Gran % (Auto) 0.8 H Neut % (Auto) 60.1 Lymph % (Auto) 28.4 [place] % (Auto) 9.8 H Eos % (Auto) 0.8 Baso % (Auto) 0.1 Immature Gran # (Auto) 0.11 H Neut # (Auto) 8.64 H Lymph # (Auto) 4.07 H [place] # (Auto) 1.40 H Eos # (Auto) 0.12 Baso # (Auto) 0.01 PT INR PTT (Actin FS) Specimen Type Sample Site pH pCO2 pO2 HCO3 Base Excess Oxyhemoglobin ABG O2 Sat (Calculated) ABG O2 Saturation ABG Carboxyhemoglobin ABG Methemoglobin Taiwo Test A-a O2 Difference Total Hemoglobin Lactate Blood Gas Modality FiO2 % Sodium 143 Potassium 3.3 L Chloride 101 Carbon Dioxide 30 Anion Gap 12 BUN 18 D Creatinine 1.6 H Estimated GFR/1.73 m2 39 BUN/Creatinine Ratio 11 Glucose 119 H Calculated Osmolality 288 Calcium 9.3 Total Bilirubin 0.65 AST 47 H ALT 46 H Alkaline Phosphatase 95 Creatine Kinase 95 Troponin T Total Protein 6.8 Albumin 3.9 Globulin 2.9 Albumin/Globulin Ratio 1.3 Plasma/Serum Ethyl Alc 05/12/19 05/12/19 05/12/19 17:40 17:40 18:20 WBC RBC Hgb Hct MCV MCH MCHC RDW Std Deviation Plt Count MPV Immature Gran % (Auto) Neut % (Auto) Lymph % (Auto) [place] % (Auto) Eos % (Auto) Baso % (Auto) Immature Gran # (Auto) Neut # (Auto) Lymph # (Auto) [place] # (Auto) Eos # (Auto) Baso # (Auto) PT 14.1 INR 1.08 PTT (Actin FS) 24.4 Specimen Type ARTERIAL Sample Site L RADIAL pH 7.43 pCO2 41 pO2 76 HCO3 26.9 H Base Excess 2.6 Oxyhemoglobin 94.2 L ABG O2 Sat (Calculated) 18.3 ABG O2 Saturation 97.3 ABG Carboxyhemoglobin 2.20 ABG Methemoglobin 1.0 Taiwo Test YES A-a O2 Difference 22.0 Total Hemoglobin 13.8 Lactate 1.10 Blood Gas Modality ROOM AIR FiO2 % 21.0 Sodium Potassium Chloride Carbon Dioxide Anion Gap BUN Creatinine Estimated GFR/1.73 m2 BUN/Creatinine Ratio Glucose Calculated Osmolality Calcium Total Bilirubin AST ALT Alkaline Phosphatase Creatine Kinase Troponin T < 0.010 Total Protein Albumin Globulin Albumin/Globulin Ratio Plasma/Serum Ethyl Alc Orders Category Date Time Status Cardiac Monitoring DIRECTED Care 05/12/19 17:41 Active Finger Stick Blood Sugar (ED) DIRECTED Care 05/12/19 17:41 Active Orthostatic Vital Signs NOW Care 05/12/19 17:59 Active Oxygen Therapy- ED Nursing DIRECTED Care 05/12/19 17:41 Active Saline Loc NOW Care 05/12/19 17:41 Active CHEST-PORTABLE [RAD] Stat Exams 05/12/19 17:[address] HEAD W/O CONTRAST [CT] Stat Exams 05/12/19 17:42 Completed ABG [RESP] Routine Lab 05/12/19 18:20 Completed ALCOHOL BLOOD Stat Lab 05/12/19 17:40 Completed CBC WITH ELECTRONIC DIFF [HEME] Stat Lab 05/12/19 17:40 Completed CK PROFILE [SP CHEM] Stat Lab 05/12/19 17:40 Completed COMPREHENSIVE METABOLIC PANEL [CHEM] Stat Lab 05/12/19 17:40 Completed LACTATE, PLASMA [CHEM] Stat Lab 05/12/19 17:41 Uncollected PROTIME WITH INR [COAG] Stat Lab 05/12/19 17:40 Completed PTT [COAG] Stat Lab 05/12/19 17:40 Completed TROPONIN T Stat Lab 05/12/19 17:40 Completed URINALYSIS [URINALYSIS] Stat Lab 05/12/19 17:41 Uncollected 0.9% Sodium Chloride Inj [Ns] 1,000 ml Med 05/12/19 17:59 Discontinued IV 999 mls/hr Altered Mental Status Stat Oth 05/12/19 17:41 Ordered EKG [EKG] Stat Ther 05/12/19 17:41 Ordered Result Diagrams: 05/12/19 17:40 05/12/19 17:40 - REASSESSMENT Reassessment #1 Status: improving (Patient with some improvment after IVF. Given that she was just discharge, she has been bradycardic, and hypotensive on arrival will plan for admission for observation. Discussed with the hospitalist team who will admit the patient.) Departure - Departure Date of Disposition Decision: 05/12/19 Time of Disposition Decision: 18:57 DIAGNOSIS: Syncope Qualifiers: Syncope type: unspecified Qualified Code(s): R55 - Syncope and collapse Disposition: ADMITTED INPATIENT 09 Certified Medical Emergency: Emergent Condition: Fair Referrals and Follow-Ups: Ector Coon MD [Primary Care Provider] - - Critical Care Note This patient required my direct & personal management of CC.: No Attestation - Physician/ EMILY Attestation Patient care was provided by Advanced Practice Provider:: No The physician spent face to face time with patient:: Yes Advanced Practice Provider documentation review:: Supervising physician onsite and consulted in the evaluation and care of this patient. The physician did have a face to face encounter with the patient. This chart was documented by the indicated scribe, (Iris Perez Scribe) and accurately reflects the services I performed and decisions made by me, Israel Johnson MD, as attested by the provider's signature.
[2019-05-12] MEDS ORDERED: KLOR-CON PO ONE (19:53)
[2019-05-12 20:09] LABS: URINE SOURCE CLEAN CATCH
[2019-05-12 20:14] LABS: BILIRUBIN URINE NEGATIVE (NEGATIVE); BLOOD URINE NEGATIVE (NEGATIVE); COLOR YELLOW; GLUCOSE URINE NEGATIVE (NEGATIVE); KETONE URINE NEGATIVE (NEGATIVE); LEUKOCYTES URINE MODERATE (NEGATIVE); NITRITE URINE NEGATIVE (NEGATIVE); PROTEIN URINE NEGATIVE (NEGATIVE); SP GRAVITY URINE 1.014; TURBIDITY URINE CLEAR (CLEAR); UROBILINOGEN URINE NORMAL (NORMAL)
[2019-05-12 20:15] LABS: UR EPITHELIAL CELLS >10 /HPF (<10); URINE BACTERIA NEGATIVE /HPF; URINE RBC <10 /HPF (<10); URINE WBC 20-40 /HPF (<10)
--- NOTE | 2019-05-12 20:42 | HISTORY AND PHYSICAL ---
REASON FOR ADMISSION: Syncopal spell today. HISTORY OF PRESENT ILLNESS: Ms. Taryn Chen is a 69-year-old woman who came in for endoscopic evaluation for because of history of passage of melanotic stools. The patient underwent endoscopy without any event this morning. She then, four or five hours after the procedure went to [facility], was walking in [facility], felt extremely hot and clammy and sick to her stomach and next thing she knew she blacked out. She says she was drifting in and out and when she finally fully awakened EMS was there. She did not defecate or urinate on herself. She did not bite her tongue. Did have any residual focal neurological symptoms. No antecedent cardiorespiratory symptoms prior to blacking out. No leg swelling or extremity redness. Since she has been in the ER she has received a liter bolus and says she feels better. No antecedent history of nausea, vomiting or diarrhea or blood just before or since the procedures today. She did state that she was given her blood pressure medication after the procedure. REVIEW OF SYSTEMS: Twelve system was done. Positive findings per HPI. ALLERGIES: Allopurinol and furosemide. HOME MEDICATIONS: She is on hydrochlorothiazide 12.5 mg daily, atorvastatin 40 mg a day, Singulair 10 mg daily., Timolol one drop daily. She was prescribed Anusol cream for hemorrhoids. She takes MiraLAX 17 grams b.i.d. p.r.n. and 2 mg daily, levothyroxine 125 mcg daily. SURGICAL HISTORY: She only reports having a partial thyroidectomy for goiter, total hysterectomy, left bunionectomy and hammertoe repair and had a prior EGD and colonoscopy in 2017 in addition to the one today. PAST MEDICAL HISTORY: History includes hypertension, gout, hypothyroidism, hyperlipidemia, history of colitis, type 2 diabetes. FAMILY HISTORY: Notable for heart disease in two brothers. Father had prostate cancer. Mom had diabetes. SOCIAL HISTORY: Does not smoke, drink, or use drugs. She is a . LABORATORY WORK: White count 14,000, hemoglobin and hematocrit 13 and 42, platelets 109,000 with no overt gross differential. Potassium 3.3, BUN is 18, creatinine 1.6, glucose 119, AST 47, ALT 46. Troponin is negative. PTT is normal. Alcohol is negative. Blood gas is entirely normal. Of note, patient's creatinine, preprocedure was 1 and now it is 1.6. Also, potassium was 3.5. White count was 9000, now it is 14,000, which I suspect to be reactive. IMAGING: Chest film and head CT with no acute cardiopulmonary or intracranial process respectively. PHYSICAL EXAMINATION: VITAL SIGNS: The patient's initial blood pressure was 80 systolic when she came in, but since she has had fluid, blood pressure has improved to 119/60, heart rate is 61, temperature is 98 degrees, respiratory rate 18, saturating 95% on room air. GENERAL: She is a pleasant, obese, middle-aged female in no acute distress. Alert and oriented x3. Normal mood and affect. HEENT: Head is normocephalic, atraumatic. Eyes: VERONIKA, EOMI. Anicteric, not pale. ENT exam is grossly normal. Moist oral mucosa. No sinusitis. NECK: Supple. No JVD or carotid bruit. No thyromegaly. CHEST: Clear to auscultation. CARDIOVASCULAR: First and second heart sounds heard. No gallops or rubs. Regular. ABDOMEN: Protuberant, soft, nontender. No splenomegaly. Bowel sounds are normal. RECTAL: Deferred at this time. EXTREMITIES: Good distal pulses. Volumes regular, symmetrical. No edema, clubbing or cyanosis. NEUROLOGIC: No gross focal deficits. Cranial nerve II-XII intact. SKIN: Intact. No breakdown, lesion, erythema. Good turgor. MUSCULAR: Exam is grossly normal. ASSESSMENT: 1. Syncope secondary to depleted intravascular volume from her colon prep and diuretic use. 2. Acute kidney injury secondary to #1. 3. Hypotension secondary to intravascular volume loss causing syncope. 4. History of hypertension. 5. Hyperlipidemia. 6. Hypothyroidism. 7. Hypokalemia secondary to gastrointestinal and diuretic losses. PLAN: Patient's electrolytes will be repleted. IV fluid resuscitation will be instituted. Hold blood pressure medications until further notice. The patient's EKG was essentially normal sinus rhythm with very nonspecific findings in the high lateral leads. I do believe with correction of her electrolytes and fluid status she should do well and be discharged tomorrow. By the way, patient had after receiving almost a liter bolus did not have any evidence of orthostatic hypotension. cc: Abdullahi Hawkins MD
[2019-05-12] MEDS ORDERED: TYLENOL PO PRN (20:45)
[2019-05-12] MEDS ORDERED: ZOFRAN IV PRN (20:45)
--- NOTE | 2019-05-12 21:19 | EKG Report ---
Test Performed on : 05/12/2019 6:24:15 PM Test Reason : Syncope Blood Pressure : / mmHG Vent. Rate : 062 BPM Atrial Rate : 062 BPM P-R Int : 142 ms QRS Dur : 084 ms QT Int : 426 ms P-R-T Axes : 045 004 080 degrees QTc Int : 432 ms Normal sinus rhythm. Normal ECG When compared with ECG of 23-JUL-2007 08:21, Nonspecific T wave abnormality now evident in Lateral leads Unconfirmed Result
[2019-05-12] MEDS: LOVENOX SUBQ SCH (22:12)
[2019-05-12] MEDS: NS + KCL 20 MEQ 1,000 ML IV SCH (22:12)
[2019-05-13] MEDS: ANUSOL-HC CREAM PR SCH ×3 (02:10→22:50)
[2019-05-13] MEDS: NS + KCL 20 MEQ 1,000 ML IV SCH (06:32)
[2019-05-13 06:44] LABS: BASO# 0.01 X1000 (0.0-0.2); BASO% 0.1 % (0.0-0.8); EOS# 0.07 X1000 (0.0-0.7); EOS% 0.6 % (0.0-10.0); HEMOGLOBIN 12.4 g/dL (12.0-16.0); IMM GRAN# 0.07 X1000 (0.0-0.04); IMM GRAN% 0.6 % (0.0-0.5); LYMPH# 2.83 X1000 (1.2-3.4); LYMPH% 23.7 % (20.5-51.1); MCH 29.4 PG (27-31); MCHC 31.8 g/dL (33-37); MCV 92.4 FL (81-99); MONO# 0.68 X1000 (0.11-0.59); MONO% 5.7 % (1.7-9.3); MPV 11.7 FL (7.4-10.4); NEUT% 69.3 % (42.2-75.2); PLT 127 X1000 (130-400); RBC 4.22 XMIL (4.2-5.4); RDW 14.4 % (11.5-14.5); WBC 11.96 X1000 (4.8-10.8)
[2019-05-13 07:18] LABS: AGAP 11; BUN 15 mg/dL (8-22); CHLORIDE 104 mmol/L (98-107); COSMO 281; ESTIMATED GFR > 60; GLUCOSE 108 mg/dL (70-104); POTASSIUM 4.3 mmol/L (3.5-5.1); SODIUM 140 mmol/L (136-145); TCO2 25 mmol/L (25-35)
[2019-05-13] MEDS ORDERED: MIRALAX PO SCH (09:00)
[2019-05-13] MEDS: LIPITOR PO SCH (09:41)
[2019-05-13] MEDS: SYNTHROID PO SCH (09:41)
[2019-05-13] MEDS: SINGULAIR PO SCH (09:42)
[2019-05-13] MEDS: TIMOPTIC 0.5% OPH SOLUTION OPH SCH (09:43)
[2019-05-13] MEDS ORDERED: ROCEPHIN ONE (09:43)
[2019-05-13] MEDS: NS 1,000 ML IV SCH (09:45)
[2019-05-13] MEDS: ROCEPHIN 1 GM in NS 50 ML IV SCH (09:46)
[2019-05-13 14:27] LABS: IRON SATURATION 34 %; TIBC 321 ug/dL; TOTAL IRON 109 ug/dL (49-151); UNBOUND IRON 212 ug/dL (112-346)
--- NOTE | 2019-05-13 14:48 | GASTROENTEROLOGY CONSULTATION ---
DATE: 05/13/2019 REASON FOR CONSULT: Diarrhea and melena status post colonoscopy. HISTORY OF PRESENT ILLNESS: Ms. Taryn Chen is a 69-year-old female with a history of colitis, hypertension, hyperlipidemia, hypothyroidism, gout, arthritis, type 2 diabetes. She was admitted in the hospital on 05/10 with complaints of dark, tarry stools and at that time, patient had mentioned that she had some sinus infection, and had gone to an urgent care clinic where she received Augmentin and prednisone. The patient feels that after taking the Augmentin she started having diarrhea and her stools were dark and tarry and also complained of abdominal bloating. The patient was also seen in May 2017 with similar problems of rectal bleeding, a colonoscopy was done by Dr. Monzon on 05/11/2017, and we found out that she had diffuse colitis more intense in the right colon likely infection. Her abdomen and pelvis CT on the admission at 05/10 showed that she had fatty infiltrations of the liver, scattered left renal cyst measuring up to 5.8 cm, hysterectomy with low- lying urinary bladder. Her C diff toxin and antigens were negative. Her urine culture showed no growth and her occult blood was positive and stool cultures showed few WBC's. The patient had a colonoscopy done yesterday by Dr. Zaman and the findings were hemorrhoids internal grade 2, which was causing her to have a GI bleed, scattered mild diverticulosis in the left colon and 2 transverse colon polyps were resected, one was in the small descending colon and the polyp was also resected. Biopsies were taken. We are awaiting the results of the biopsy. The patient was asked to take MiraLAX 17 g and she was given Proctosol hydrocortisone 2.5 screen twice a day for 4 weeks and was advised to repeat colonoscopy in 1 year for surveillance. The patient is back today. After the patient was discharged she mentioned that she had gone to [employer] with her daughter to olive picker her medications and when she was walking around [employer], she felt sick to her stomach and she was extremely hot and clammy, the next thing she knew was she passed out. The patient has denied falling on the ground. She has denied any nausea, vomiting, or abdominal pain. She has also denied any chills, shortness of breath, but she did mention that her stools look similar to what it was on that admission. It was black and tarry and she had 1 bowel movement today. The patient is on a heart healthy diet and she has mention tolerating her diet very well. Chest x-ray yesterday showed no acute disease. Head CT showed no evidence of acute intracranial disease. PAST MEDICAL HISTORY: Diabetes type 2, hypertension, hyperlipidemia, hypothyroidism, gout, history of colitis, history of colon polyps, hemorrhoids. PAST SURGICAL HISTORY: Partial thyroidectomy, partial hysterectomy, left foot bunionectomy and hammertoe repair and polypectomy. SOCIAL HISTORY: The patient is a . She has 3 kids. She has denied any alcohol, tobacco, or illicit drug use. ALLERGIES: She is allergic to Lasix and allopurinol. FAMILY HISTORY: Her mother had diabetes. Father had prostate cancer and diabetes and sister had colon cancer. HOME MEDICATIONS: 1. Timolol 0.5% ophthalmic solution 1 drop daily. 2. Hydrochlorothiazide 12.5 mg daily. 3. Levothyroxine 125 mcg daily. 4. Singular 10 mg daily. 5. Atorvastatin 40 mg daily. 6. Hydrocortisone 2.5% cream per rectum twice a day for 28 days. 7. MiraLAX 17 g daily. REVIEW OF SYSTEMS: As per HPI. Otherwise, 12 point review of system is negative. PHYSICAL EXAMINATION: Signs: Temperature 98.2 degrees, pulse 78, respirations 20, blood pressure 135/74, oxygen saturation 97%. The patient's weight is 188 pounds. BMI is 31.3 kg/m2. General: She is alert, oriented x3, in no acute distress. Answering questions appropriately. HEENT: Pale conjunctivae, no icterus. PERRL. Neck: Supple. Lungs: Clear to auscultation in the anterior tirado. Cardiovascular: Regular rate and rhythm. Abdomen: Soft, mildly distended. Active bowel sounds heard in all 4 quadrants. Extremities: No clubbing, no cyanosis, no edema. Pedal pulses 2+ present bilaterally. Neurologic: She is alert oriented x3. Nonfocal. Cranial nerves 2-12 grossly intact. LABORATORY DATA: WBC is 11.96, RBC 4.22, hemoglobin 12.4, hematocrit 39.0, platelet count 127,000. Sodium 140, potassium 4.3, chloride 104, carbon dioxide 25, anion gap 11, BUN 15, creatinine 1.0, glucose 108, calcium 9.0, magnesium 2.0. Urinalysis showed moderate leukocytosis. Head CT showed no evidence of acute intracranial disease. Chest x-ray showed no acute disease. IMPRESSION/PLAN: 1. Melena 2. Diarrhea. 3. History of colitis. 4. Syncope. 5. Hypertension. 6. Hypothyroidism. 7. Gout. 8. Arthritis PLAN: Ms. Chen is a 69-year-old female with a history of colitis and status post colonoscopy with findings of hemorrhoids and colon polyps. The patient was discharged yesterday and she is back in the hospital the very same day with complaints of syncope.The patient is currently receiving IV fluids normal saline at 75 mL and she is on antibiotic Rocephin. The patient has denied any nausea, vomiting, or abdominal pain. She did mention that she has diarrhea and she has noticed her stools are dark and tarry. Her hemoglobin and hematocrit today is 12.4 and 39.0. She is hemodynamically stable. Her colonoscopy yesterday showed she had grade 2 hemorrhoids and colon polyps, which were resected and biopsies have been sent, awaiting the results of the biopsy. We plan to do an EGD to rule out the cause of her melena. Discussed the risks, benefits and alternatives of the procedure, patient acknowledges understanding of the plan of care. Further plan of care will be based on the EGD findings. We will continue to monitor the patient and follow the plan of care per PCP. This plan was discussed with Dr. Davison. Thank you for your consult. Please call us for any further questions or concerns. Dictated by ALEXIS Nash for Maverick Davison MD Physician Attestation I have seen and examined the patient. I have discussed and reviewed the note by Reanna ESPINOZA and agree with findings and plan as documented. In brief, Ms. Taryn Chen is a 69 year old woman with HTN, HLD, NIDDM2, colonic polyps, and hemorrhoids who represents with probable vasovagal syncope and persistent "black stools" concerning for melena. She had colonoscopy yesterday with small polyps and hemorrhoids. Hgb unchanged. Recommend iron studies and diagnostic EGD on Sun. NPO after MN. MTDD
[2019-05-13] MEDS ORDERED: IMODIUM PO ONE (21:31)
[2019-05-13] MEDS ORDERED: QUESTRAN PO ONE (21:32)
--- NOTE | 2019-05-13 22:11 | PROGRESS NOTE ---
DATE: 05/13/2019 SUBJECTIVE: The patient states that she feels a lot better today. However, she is still complaining of diarrhea. She denies having any dizziness or headache. She denies having abdominal pain. OBJECTIVE: Vital Signs: Temperature 98.4 degrees, blood pressure 142/84, heart rate 80, respirations 20, O2 saturation is 100% on room air. General: This is an elderly female sitting up in bed in no acute distress. Heart: S1, S2 normal. Regular rate and rhythm. Lungs: Clear to auscultation bilaterally. Abdomen: Positive bowel sounds. Soft, nontender, nondistended. Extremities: No edema. No cyanosis. Neurologic: The patient is alert and oriented x4. LABORATORY DATA: White blood cell count 11. Sodium 140, potassium 4.3, chloride 105, CO2 of 25, BUN 15, creatinine 1. ASSESSMENT AND PLAN: 1. Syncope secondary to volume depletion. Resolved. 2. Dehydration. Likely secondary to the bowel prep that the patient had prior to her colonoscopy on May 11. She appears to be improved with IV fluid hydration. 3. Acute kidney injury. Resolved. 4. Possible urinary tract infection. We will start the patient on Rocephin and follow up on the urine culture results. 5. Leukocytosis. Improved. 6. Diarrhea. We will continue with IV fluids and check stool studies. We will also consult with GI for further recommendations. 7. Hypothyroidism. Continue on Synthroid. 8. Hemorrhoids. Continue on Anusol cream. 9. Deep vein thrombosis prophylaxis. Continue on Lovenox. cc: Ramya Rojas MD MTDD
[2019-05-13] MEDS: CULTURELLE PO SCH (22:38)
[2019-05-13] MEDS: LOVENOX SUBQ SCH (22:38)
[2019-05-14 06:58] LABS: HEMATOCRIT 40.3 % (37.0-47.0); MCH 30.1 PG (27-31); MCHC 32.3 g/dL (33-37); MCV 93.3 FL (81-99); MPV 12.4 FL (7.4-10.4); RBC 4.32 XMIL (4.2-5.4); RDW 14.4 % (11.5-14.5); WBC 8.75 X1000 (4.8-10.8)
[2019-05-14 07:34] LABS: AGAP 10; BUN 11 mg/dL (8-22); CALCIUM 8.9 mg/dL (8.8-10.2); CHLORIDE 104 mmol/L (98-107); COSMO 279; CREATININE 0.9 mg/dL (0.5-0.9); ESTIMATED GFR > 60; GLUCOSE 102 mg/dL (70-104); SODIUM 140 mmol/L (136-145); TCO2 26 mmol/L (25-35)
[2019-05-14] MEDS ORDERED: DIPRIVAN 1% ONE (08:43)
[2019-05-14] MEDS ORDERED: XYLOCAINE-MPF 2% ONE (08:43)
--- NOTE | 2019-05-14 09:09 | ENDOSCOPY OPERATIVE NOTE ---
[facility] ENDOSCOPY OPERATIVE NOTE , EGD PROCEDURE REPORT EXAM DATE: 05/14/2019 PATIENT NAME: Taryn Chen MR#: [id number] BIRTHDATE: 1950 ATTENDING: Maverick Davison MD STATUS: inpatient PHYSICS TUTOR: INDICATIONS: The patient is a 69 yr old female here for an EGD due to melena. PROCEDURE PERFORMED: EGD w/ snare technique MEDICATIONS: Per Anesthesia ESTIMATED BLOOD LOSS: None CONSENT: The patient understands the risks and benefits of the procedure and understands that these r isks include, but are not limited to: sedation, allergic reaction, infection, perforation and/or bleeding. Alternative means of evaluation and treatment include, among others: physical exam, x-rays, and/or surgical intervention. The patient elects to proceed with this endoscopic procedure. DESCRIPTION OF PROCEDURE: During pre-op preparation period all mechanical and medical equipment was c hecked for proper function. Hand hygiene and appropriate measures for infection prevention was taken. After the risks, benefits and alternatives of the procedure were thoroughly explained, Informed consent was verified, confirmed and timeout was successfully executed by the treatment team. The patient was anesthetized with topical anesthesia and the AP69-s35 ([id number]) endoscope was introduced through the mouth and advanced to the second portion of the duoden um. Retroflexion was performed in the stomach and revealed no abnormalities. The gastroscope was then slowly withdraw n and removed. The patient's toleration of the procedure was excellent. ESOPHAGUS: White exudates consistent with candidiasis were found in the entire esophagus. A biopsy w as performed using cold forceps. The z-line was noted at 35cm from the incisors. The z-line appeared normal. STOMACH: Mild gastritis (inflammation) was found in the gastric body. A biopsy was performed using c old forceps. A 8 mm pedunculated polyp was found in the gastric antrum. A biopsy was performed using a hot snare. DUODENUM: The duodenum was normal. ADVERSE EVENTS: There were no complications. IMPRESSIONS: 1. White exudates consistent with candidiasis in the entire esophagus; biopsy was p erformed 2. The z-line was noted at 35cm from the incisors 3. Gastritis (inflammation) was found in the gastric body; biopsy was performed 4. 8 mm pedunculated polyp was found in the gastric antrum; biopsy was performed using a hot snare 5. The duodenum was normal RECOMMENDATIONS: 1. Await biopsy results 2. Start fluconazole 400mg x1, then 200mg PO once daily for 14 days 3. Advance diet as tolerated 4. Will sign off. Patient can be discharged from [facility]. Follow-up in 4-6 weeks REPEAT EXAM: Maverick Davison MD eSigned: Maverick Davison MD 05/14/2019 9:08 AM CC: CPT CODES: 19455 Upper gastrointestinal endoscopy including esophagus, stomach, and either the du odenum and/or jejunum as appropriate; with removal of tumor(s), polyp(s), or other lesion(s) by snare technique ICD CODES: 578.1 Blood in stool 112.84 Candidal esophagitis 535.50 Unspecified gastritis and gastroduodenitis (without hemorrhage) 211.1 Benign neoplasm of stomach The ICD and CPT codes recommended by this software are interpretations from the data that the [facility] staff has captured with the software. The verification of the translation of this report to the ICD and CPT co rosa and modifiers is the sole responsibility of the health care institution and practicing physician where this report was generated. [employer] will not be held responsible for the validity of the ICD and CPT codes i ncluded on this report. AMA assumes no liability for data contained or not contained herein. CPT is a registered tra demark of the [employer]. PATIENT NAME: Taryn Chen MR#: [id number]
[2019-05-14] MEDS ORDERED: DIFLUCAN PO ONE (10:15)
[2019-05-14] MEDS: SYNTHROID PO SCH (10:56)
[2019-05-14] MEDS: CULTURELLE PO SCH ×2 (10:57→21:16)
[2019-05-14] MEDS: LOMOTIL PO SCH ×3 (10:57→21:17)
[2019-05-14] MEDS: LIPITOR PO SCH (10:57)
[2019-05-14] MEDS: ROCEPHIN 1 GM in NS 50 ML IV SCH (10:57)
[2019-05-14] MEDS: SINGULAIR PO SCH (10:57)
[2019-05-14] MEDS: TIMOPTIC 0.5% OPH SOLUTION OPH SCH (10:58)
[2019-05-14] MEDS: ANUSOL-HC CREAM PR SCH ×2 (11:02→21:16)
[2019-05-14] MEDS: NS 1,000 ML IV SCH ×2 (12:19→16:39)
[2019-05-14] MEDS ORDERED: HYDROCHLOROTHIAZIDE PO ONE (16:54)
--- NOTE | 2019-05-14 20:46 | PROGRESS NOTE ---
DATE: 05/14/2019 SUBJECTIVE: The patient continues to complain of diarrhea. She states that she has had 6 bowel movements since last night. OBJECTIVE: Vital Signs: Temperature 98.3 degrees, blood pressure 168/87, heart rate 57, respirations 18, O2 saturation 98% on room air. General: This is an elderly female lying in bed in no acute distress. Heart: S1, S2 normal. Regular rate and rhythm. Lungs: Equal air entry bilaterally. No wheezing. No rales. Abdomen: Positive bowel sounds. Soft, nontender, nondistended. Extremities: No edema, no cyanosis. Neurologic: The patient is alert and oriented x3. LABORATORY DATA: White blood cell count 8.7, hemoglobin 13, hematocrit 40, platelets 110,000. Sodium 140, potassium 4, BUN 11, creatinine 0.9, glucose 102. ASSESSMENT AND PLAN: 1. Esophageal candidiasis. The patient has been started on Diflucan, which she will need to complete a 14-day course of therapy. 2. Diarrhea. Slowly improving. Continue on Lomotil. The stool studies were negative. 3. Hemorrhoids. Continue on Anusol. 4. Acute kidney injury. Resolved. 5. Hypothyroidism. Continue on Synthroid. 6. Hypertension. We will restart the patient's hydrochlorothiazide. 7. Hyperlipidemia. Continue on Lipitor. 8. Urinary tract infection, resolved. We will discontinue the antibiotic therapy. Disposition: If the patient's diarrhea has improved, she can be discharged home tomorrow. cc: Ramya Rojas MD MTDYessi
[2019-05-14] MEDS: LOVENOX SUBQ SCH (21:16)
[2019-05-15] MEDS: LOMOTIL PO SCH ×4 (03:51→16:41)
[2019-05-15] MEDS: NS 1,000 ML IV SCH ×3 (03:51→17:42)
[2019-05-15 07:18] LABS: CALCIUM 9.6 mg/dL (8.8-10.2); CREATININE 1.2 mg/dL (0.5-0.9)
[2019-05-15] MEDS: ANUSOL-HC CREAM PR SCH ×2 (08:46→21:14)
[2019-05-15] MEDS: SINGULAIR PO SCH (08:47)
[2019-05-15] MEDS: LIPITOR PO SCH (08:47)
[2019-05-15] MEDS: HYDROCHLOROTHIAZIDE PO SCH (08:47)
[2019-05-15] MEDS: SYNTHROID PO SCH (08:47)
[2019-05-15] MEDS: DIFLUCAN PO SCH (08:48)
[2019-05-15] MEDS: CULTURELLE PO SCH ×2 (08:50→21:15)
[2019-05-15] MEDS: TIMOPTIC 0.5% OPH SOLUTION OPH SCH (08:51)
[2019-05-15] MEDS: QUESTRAN PO SCH ×3 (10:57→16:38)
--- NOTE | 2019-05-15 11:52 | GASTROENTEROLOGY PROGRESS NOTE ---
DATE: 05/15/2019 SUBJECTIVE: Ms. Chen is a 69-year-old female. She was resting in bed. The patient denies any nausea, vomiting, or abdominal pain. OBJECTIVE: Vital Signs: Temperature 98.3 degrees, pulse 59, respirations 16, blood pressure is 167/87, oxygen saturation 98% on room air. The patient's weight is 188 pounds. BMI is 31.3 kg/m2. General: She is alert, oriented x3, in no acute distress. HEENT: Pale conjunctivae. No icterus. PERRL. Neck: Supple. Lungs: Clear to auscultation in the anterior tirado. Cardiovascular: The patient is bradycardic. Abdomen: Obese, nontender, nondistended. Active bowel sounds heard in all 4 quadrants. Extremities: No clubbing, no cyanosis, no edema. Pedal pulses 2+ present bilaterally. Neurologic: She is alert, oriented x3. LABORATORY DATA: WBCs are 8.75, RBC 4.32, hemoglobin 13.0, hematocrit 40.3, platelet count is 110,000. Sodium 139. Potassium 4.0, chloride 101, carbon dioxide 24, anion gap 14, BUN 9, creatinine 1.2, glucose 99, calcium 9.6, magnesium is 2.0. IMPRESSION AND PLAN: - Beti esophagitis - Gastric polyp - Diarrhea - Melena - Hemorrhoids - Syncope - Thrombocytopenia PLAN: Ms. Chen a 69-year-old female with a history of colitis and status post colonoscopy findings of hemorrhoids and colon polyps. The patient was discharged and was back in the hospital with complaints of syncope. We did an EGD yesterday and she had some white exudates consistent with candidiasis in the entire esophagus. Biopsy was performed. Gastritis found in the gastric body. Biopsies were performed. She had an 8 mm enucleated polyp which was found and biopsies performed. We are awaiting the results of the biopsy. The patient mentioned having diarrhea. She had almost 4 bowel movements yesterday. Today, she did have couple of bowel movements. Her stool for Clostridium difficile toxin, antigen and WBCs were negative. The patient is currently receiving Lomotil 1 tablet 3 times a day. She is also on Diflucan for candidiasis in the esophagus.. The patient is also receiving Questran 4 g p.o. 3 times a day per PCP for her diarrhea. She is on normal saline IV fluids at 75 mL. For her nausea and vomiting, she is on Zofran and Anusol hydrocortisone cream 2.5% for her hemorrhoids. Her hemoglobin and hematocrit is 13.0 and 40.3. She is hemodynamically stable. We will continue to monitor the patient and follow the plan of care per PCP. This plan was discussed with Dr. Davison. Please call us for any further questions or concerns. Dictated by ALEXIS Nash for Maverick Davison MD Physician Attestation I have seen and examined the patient. I have discussed and reviewed the note by Reanna ESPINOZA and agree with findings and plan as documented. [facility]
[2019-05-15 13:08] LABS: UR CREAT RANDOM 91.7 mg/dL (11-20); UR PROT RANDOM 6.4 mg/dL
[2019-05-15] MEDS: LOVENOX SUBQ SCH (21:15)
--- NOTE | 2019-05-15 22:28 | PROGRESS NOTE ---
DATE: 05/15/2019 SUBJECTIVE: The patient is sitting at the edge of the bed. She states that she had 3 episodes of diarrhea this morning. OBJECTIVE: Vital signs: Temperature 98.2 degrees, blood pressure 127/79, heart rate 64, respirations 18, O2 saturation 97% on room air. General: This is an elderly female sitting in bed in no acute distress. Heart: S1, S2 normal. Regular rate and rhythm. Lungs: Equal air entry bilaterally. No wheezing. No rales. No rhonchi. Abdomen: Positive bowel sounds, soft, nontender, nondistended. Extremities: No edema, no cyanosis. Neurologic: The patient is alert and oriented x3. LABORATORIES: Sodium 130, potassium 4, chloride 101, CO2 24, BUN 9, creatinine 1.2, glucose 99. ASSESSMENT AND PLAN: 1. Esophageal candidiasis. Continue on Diflucan. Today is day 2 of therapy. The patient will need to complete a 14 day course of treatment. 2. Diarrhea. Continue on Lomotil. Will also add Questran. Stool studies are negative. 3. Hemorrhoids. Continue on Anusol. 4. Acute kidney injury. The creatinine is slightly elevated today. We will continue with IV fluids because the patient is still having liquid stools. 5. Hypothyroidism. Continue on Synthroid. 6. Hypertension. Continue on hydrochlorothiazide. 7. Hyperlipidemia. Continue on Lipitor. 8. Disposition. The patient will be discharged home once she is no longer having diarrhea. cc: Ramya Rojas MD MTDD
[2019-05-16] MEDS: NS 1,000 ML IV SCH (06:31)
[2019-05-16 07:20] LABS: CALCIUM 9.6 mg/dL (8.8-10.2); CREATININE 1.1 mg/dL (0.5-0.9); MAGNESIUM 1.9 mg/dL (1.5-2.7); POTASSIUM 4.1 mmol/L (3.5-5.1)
[2019-05-16] MEDS: DIFLUCAN PO SCH (08:10)
[2019-05-16] MEDS: QUESTRAN PO SCH ×2 (08:10→12:33)
[2019-05-16] MEDS: LIPITOR PO SCH (08:10)
[2019-05-16] MEDS: HYDROCHLOROTHIAZIDE PO SCH (08:10)
[2019-05-16] MEDS: LOMOTIL PO SCH ×2 (08:10→12:33)
[2019-05-16] MEDS: SYNTHROID PO SCH (08:11)
[2019-05-16] MEDS: ANUSOL-HC CREAM PR SCH (08:12)
[2019-05-16] MEDS: CULTURELLE PO SCH (08:12)
[2019-05-16] MEDS: SINGULAIR PO SCH (08:12)
[2019-05-16] MEDS: TIMOPTIC 0.5% OPH SOLUTION OPH SCH (08:13)
[2019-05-16 11:19] VITALS: BP 149/76
--- NOTE | 2019-05-18 12:38 | DISCHARGE SUMMARY ---
ADMISSION DATE: 05/14/2019 DISCHARGE DATE: 05/16/2019 FINAL DISCHARGE DIAGNOSES: 1. Esophageal candidiasis. 2. Internal hemorrhoids. 3. Acute kidney injury secondary to dehydration. 4. Diarrhea. 5. Hypertension. 6. Hyperlipidemia. 7. Mild gastritis. 8. Polyp in the antrum, status post biopsy. PROCEDURES PERFORMED: EGD performed on 05/14/2019 that revealed mild gastritis in the gastric body, the polyp in the gastric antrum, and esophageal candidiasis. HOSPITAL COURSE: Ms. Chen is a 69-year-old female with a history of hypertension who presented to the ER with a chief complaint of persistent diarrhea following a colonoscopy. On admission, the patient was noted to be dehydrated and in acute renal failure. The patient was admitted to the hospitalist service and started on IV fluids. GI was consulted for further treatment and recommendations. The patient was taken for endoscopy on 05/14/2019 at which time an EGD was performed that revealed mild gastritis and a polyp in the gastric antrum. The patient was also noted to have esophageal candidiasis. The patient was started on Diflucan. The patient continued to have diarrhea several days after the original colonoscopy and was treated with Lomotil and Questran. The patient's diarrhea improved and her renal function improved as well after hydration. The patient continued to improve clinically and was ultimately cleared for discharge home on 05/16/2019. DISCHARGE MEDICATIONS: 1. Lactobacillus 1 tablet oral twice a day. 2. Fluconazole 200 mg oral daily x11 more days. 3. Questran 4 g oral twice a day p.r.n. for diarrhea. 4. Lomotil 1 tablet oral twice a day p.r.n. for diarrhea. 5. Hydrochlorothiazide 12.5 mg oral daily. 6. Synthroid 125 mcg oral daily. 7. Singulair 10 mg oral daily. 8. Lipitor 40 mg p.o. daily. 9. Anusol 1 g rectally twice a day. 10. MiraLAX 17 g oral daily p.r.n. for constipation. DISCHARGE DIET: Low-sodium diet. ACTIVITY: As tolerated. FOLLOWUP INSTRUCTIONS: The patient will need to follow up with Dr. Zmaan as scheduled by his clinic. cc: Ramya Rojas MD
== END 2019-05-16 15:20 | disposition home or self-care (01) | DRG 683 ==
LOC: SUPCPDRO → ED 17:18 → 4N 17:18 → SUATTDRO 20:29
PROVIDERS: ATTEND Internal Medicine